=== PATIENT | male | born 1955 | race Caucasian/White ===

== ENCOUNTER 2019-04-30 10:24 | Day surgery (SDC) | payer MEDICARE, BC ==
[~2019-04-30 10:24] MED LIST: CEFAZOLIN 1 GM/50 ML (PMX) 50 ML IVPB
[2019-04-30 11:28] LABS: ADD MAN DIFF? NO
[2019-04-30 11:31] LABS: BASOPHILS % 0.3 % (0.0-2.0); EOSINOPHILS # 0.3 10^3/ul (0.0-0.5); HEMOGLOBIN 9.7 g/dl (14.0-18.0); LYMPHOCYTES % 23.1 % (15.0-51.0); MEAN CORPUSCULAR HEMOGLOBIN 26.1 pg (29.0-33.0); MEAN CORPUSCULAR HGB CONC 31.3 g/dl (32.0-37.0); MEAN CORPUSCULAR VOLUME 83.6 fl (82.0-101.0); MEAN PLATELET VOLUME 9.4 fl (7.4-10.4); MONOCYTE # 0.6 10^3/ul (0.3-0.9); MONOCYTES % 7.2 % (0.0-11.0); NEUTROPHIL # 5.7 10^3/ul (1.6-7.5); NEUTROPHILS % 65.8 % (39.0-77.0); PLATELET COUNT 273 10^3/UL (140-415); RED BLOOD COUNT 3.71 10^6/ul (4.70-6.10); RED CELL DISTRIBUTION WIDTH 14.8 % (11.5-14.5)
[2019-04-30 11:31] LABS: WHITE BLOOD COUNT 8.6 10^3/ul (4.8-10.8)
[2019-04-30 11:36] LABS: HOLD TRANSMISSIONS 1
[2019-04-30 11:58] LABS: INR 0.89; PARTIAL THROMBOPLASTIN TIME 28.6 Sec (23.0-35.0); PROTIME 12.2 Sec (11.9-14.9)
[2019-04-30] MEDS: SOD CHLORIDE 0.9% 1,000 ML IV (12:01)
[2019-04-30] MEDS ORDERED: FENTAnyl 50 MCG/ML VIAL (12:38)
[2019-04-30] MEDS ORDERED: PROPOFOL 20 ML (12:38)
[2019-04-30] MEDS ORDERED: MIDAZOLAM 1 MG/ML 2 ML INJ (12:38)
[2019-04-30] MEDS ORDERED: POLYMYXIN/BACITRACIN 1L IRRIG (12:39)
[2019-04-30] MEDS ORDERED: LABETALOL HCL 20MG INJ IV (13:00)
[2019-04-30] MEDS ORDERED: HYDROmorphONE 1 MG/5 ML IV SYRINGE IV ×2 (13:00)
[2019-04-30] MEDS ORDERED: FENTAnyl 50 MCG/ML VIAL IV (13:00)
[2019-04-30] MEDS: LIDOCAINE 1% (MPF) 30 ML INJ (13:47)
[2019-04-30] MEDS: hydrALAzine 20 MG INJ IV (14:48)
[2019-04-30] MEDS: FENTAnyl 50 MCG/ML VIAL IV (15:01)
[2019-04-30] MEDS: HYDROCODONE/APAP (10/325) TAB PO (16:25)
== END 2019-04-30 16:31 | disposition home or self-care (01) ==
LOC: SDS 10:24
DX: E11.621 Type 2 diabetes mellitus with foot ulcer (principal); E11.42 Type 2 diabetes mellitus with diabetic polyneuropathy; I73.9 Peripheral vascular disease, unspecified
CPT/HCPCS: 28805; 82962; 85025; 85610; 85730; 87070; 87075; 87102; 88304; 88311